=== PATIENT | male | born 1970 | race African-American/Black ===

== ENCOUNTER 2017-03-02 12:32 | Emergency (ER) | payer SELFPAY ==
[~2017-03-02] VITALS: Ht 180.3 cm; Wt 81.6 kg
[2017-03-02] MEDS ORDERED: IV NORMAL SALINE 1000ML BAG 1,000 ML IV ONE (13:15)
[2017-03-02] MEDS ORDERED: ONDANSETRON PF 4 MG/2 ML VIAL. IV ONE (13:15)
[2017-03-02] MEDS ORDERED: HYDROmorphone 2 MG/ML VIAL IV ONE (13:15)
[2017-03-02 14:14] LABS: BASO % 1 % (0-3); EOS % 0 % (0-3); HEMATOCRIT 44.8 % (39.0-53.0); HEMOGLOBIN 15.4 g/dL (13.0-17.5); LYMPH # 0.8 x10^3/uL (1.0-4.8); LYMPH % 15 % (24-48); MEAN CORPUSCULAR HEMOGLOBIN 29 pg (25-35); MEAN CORPUSCULAR HGB CONC 34 g/dL (31-37); MEAN CORPUSCULAR VOLUME 85 fL (79-100); MONO % 5 % (0-9); NEUT % 80 % (31-73); PLATELET COUNT 171 x10^3/uL (140-400); RED BLOOD COUNT 5.27 x10^6/uL (4.30-5.70); RED CELL DISTRIBUTION WIDTH 13.8 % (11.5-14.5); WHITE BLOOD COUNT 5.2 x10^3/uL (4.0-11.0)
[2017-03-02 14:16] LABS: BILIRUBIN,URINE NEGATIVE (NEG); GLUCOSE,URINE NEGATIVE (NEG); NITRITE,URINE NEGATIVE (NEG); PH,URINE 8.5; PROTEIN,URINE NEGATIVE (NEG-TRACE); UROBILINOGEN,URINE 0.2 mg/dL (0.2 mg/dL)
[2017-03-02 14:27] LABS: CALCIUM 9.7 mg/dL (8.5-10.1); GFR 97.8; POTASSIUM 3.7 mmol/L (3.5-5.1)
--- NOTE | 2017-03-02 14:28 | PHYS DOC ---
Past Medical History Past Medical History: Constipation, Hepatitis Past Surgical History: Other Additional Past Surgical Histo: HERNIA SX Alcohol Use: Sober Drug Use: Marijuana Adult General Chief Complaint Chief Complaint: ABDOMINAL PAIN HPI HPI Patient is a 47 year old male who presents with 2 day history of lower abdominal pain mild to moderate intensity intermittent intensity some nausea no vomiting some urinary frequency but no dysuria or penile discharge has complaints of some constipation but is now having some stools. Reports only surgical history hernia repair as an adolescent. Denies fever or lack of appetite. Does smoke marijuana frequently. Review of Systems Review of Systems Constitutional: Denies fever or chills [] Eyes: Denies change in visual acuity, redness, or eye pain [] HENT: Denies nasal congestion or sore throat [] Respiratory: Denies cough or shortness of breath [] Cardiovascular: No additional information not addressed in HPI [] GI: Denies,, vomiting, bloody stools or diarrhea [] : Denies dysuria or hematuria [] Musculoskeletal: Denies back pain or joint pain [] Integument: Denies rash or skin lesions [] Neurologic: Denies headache, focal weakness or sensory changes [] Endocrine: Denies polyuria or polydipsia [ All review systems are negative except as mentioned in history present illness] Current Medications Current Medications Current Medications Medications (Trade) Dose Ordered Sig/[facility] Start Time Stop Time Status Last Admin Dose Admin Hydromorphone HCl (Dilaudid) 0.5 mg 1X ONCE 03/02/17 13:15 03/02/17 13:16 DC 03/02/17 14:10 0.5 MG Info (Do NOT chart on this entry -- for MONITORING) 1 each PRN DAILY PRN 03/02/17 15:00 03/02/17 16:45 DC Iohexol (Omnipaque 300 Mg/ml) 75 ml 1X ONCE 03/02/17 15:00 03/02/17 15:01 DC 03/02/17 15:01 75 ML Ondansetron HCl (Zofran) 4 mg 1X ONCE 03/02/17 13:15 03/02/17 13:16 DC 03/02/17 14:08 4 MG Sodium Chloride 1,000 ml @ 1,000 mls/hr 1X ONCE 03/02/17 13:15 03/02/17 14:14 DC 03/02/17 14:10 1,000 MLS/HR Allergies Allergies Allergies Coded Allergies Type Severity Reaction Last Updated Verified Sulfa (Sulfonamide Antibiotics) Allergy Intermediate 04/20/15 No Physical Exam Physical Exam Constitutional: Well developed, well nourished, no acute distress, non-toxic appearance. [] HENT: Normocephalic, atraumatic, bilateral external ears normal, oropharynx moist, no oral exudates, nose normal. [] Eyes: PERRLA, EOMI, conjunctiva normal, no discharge. [] Neck: Normal range of motion, no tenderness, supple, no stridor. [] Cardiovascular:Heart rate regular rhythm, no murmur [] Lungs & Thorax: Bilateral breath sounds clear to auscultation [] Abdomen: Bowel sounds normal, soft, no tenderness, no masses, no pulsatile masses. [] Skin: Warm, dry, no erythema, no rash. [] Back: No tenderness, no CVA tenderness. [] Extremities: No tenderness, no cyanosis, no clubbing, ROM intact, no edema. [] Neurologic: Alert and oriented X 3, normal motor function, normal sensory function, no focal deficits noted. [] Psychologic: Affect normal, judgement normal, mood normal. [] Current Patient Data Vital Signs Vital Signs Date Time Temp Pulse Resp B/P (MAP) Pulse Ox O2 Delivery O2 Flow Rate FiO2 03/02/17 16:30 72 20 134/69 (90) 100 Room Air 03/02/17 13:00 97.5 97.5 Lab Values Laboratory Tests Test 03/02/17 14:00 White Blood Count 5.2 x10^3/uL (4.0-11.0) Red Blood Count 5.27 x10^6/uL (4.30-5.70) Hemoglobin 15.4 g/dL (13.0-17.5) Hematocrit 44.8 % (39.0-53.0) Mean Corpuscular Volume 85 fL (79-100) Mean Corpuscular Hemoglobin 29 pg (25-35) Mean Corpuscular Hemoglobin Concent 34 g/dL (31-37) Red Cell Distribution Width 13.8 % (11.5-14.5) Platelet Count 171 x10^3/uL (140-400) Neutrophils (%) (Auto) 80 % (31-73) H Lymphocytes (%) (Auto) 15 % (24-48) L Monocytes (%) (Auto) 5 % (0-9) Eosinophils (%) (Auto) 0 % (0-3) Basophils (%) (Auto) 1 % (0-3) Neutrophils # (Auto) 4.2 x10^3uL (1.8-7.7) Lymphocytes # (Auto) 0.8 x10^3/uL (1.0-4.8) L Monocytes # (Auto) 0.3 x10^3/uL (0.0-1.1) Eosinophils # (Auto) 0.0 x10^3/uL (0.0-0.7) Basophils # (Auto) 0.0 x10^3/uL (0.0-0.2) Urine Collection Type Unknown Urine Color Yellow Urine Clarity Clear Urine pH 8.5 Urine Specific [place] 1.010 Urine Protein Negative mg/dL (NEG-TRACE) Urine Glucose (UA) Negative mg/dL (NEG) Urine Ketones (Stick) 15 mg/dL (NEG) Urine Blood Negative (NEG) Urine Nitrite Negative (NEG) Urine Bilirubin Negative (NEG) Urine Urobilinogen Dipstick 0.2 mg/dL (0.2 mg/dL) Urine Leukocyte Esterase Negative (NEG) Urine RBC Rare /HPF (0-2) Urine WBC Occ /HPF (0-4) Urine Squamous Epithelial Cells Few /LPF Urine Bacteria 0 /HPF (0-FEW) Urine Mucus Slight /LPF Sodium Level 139 mmol/L (136-145) Potassium Level 3.7 mmol/L (3.5-5.1) Chloride Level 102 mmol/L (98-107) Carbon Dioxide Level 26 mmol/L (21-32) Anion Gap 11 (6-14) Blood Urea Nitrogen 8 mg/dL (8-26) Creatinine 1.0 mg/dL (0.7-1.3) Estimated GFR (Cockcroft-Gault) 97.8 BUN/Creatinine Ratio 8 (6-20) Glucose Level 108 mg/dL (70-99) H Calcium Level 9.7 mg/dL (8.5-10.1) Total Bilirubin 0.5 mg/dL (0.2-1.0) Aspartate Amino Transferase (AST) 28 U/L (15-37) Alanine Aminotransferase (ALT) 35 U/L (16-63) Alkaline Phosphatase 83 U/L (46-116) Total Protein 8.7 g/dL (6.4-8.2) H Albumin 4.3 g/dL (3.4-5.0) Albumin/Globulin Ratio 1.0 (1.0-1.7) Lipase 76 U/L (73-393) Laboratory Tests 03/02/17 14:00 Laboratory Tests 03/02/17 14:00 EKG EKG [] Radiology/Procedures Radiology/Procedures CT abdomen and pelvis [] per the radiology report patient has incidental finding of cholelithiasis bladder wall thickening and renal cysts bilaterally. Course & Med Decision Making Course & Med Decision Making Pertinent Labs and Imaging studies reviewed. (See chart for details) [Plan of care will consist of IV fluids symptomatic treatment checking labs and a CT abdomen and pelvis.] Exam at 1545 patient is improved and stable for dismissal. CT scan abdomen and pelvis showed multiple findings and I discussed those with the patient and his significant other including the diagnosis of gallstones cystitis and renal cysts that should probably followed up by a auto job estimator. Patient is report occasional blood in it when wiping on the toilet paper but there were no external hemorrhoids seen on the exam. Recommended stool softeners for constipation. Dragon Disclaimer Dragon Disclaimer This electronic medical record was generated, in whole or in part, using a voice recognition dictation system. Departure Departure Impression: Primary Impression: Cystitis Additional Impressions: Bilateral renal cysts Cholelithiasis Constipation Abdominal pain Disposition: 01 HOME, SELF-CARE Condition: IMPROVED Referrals: NO PCP (PCP) Patient Instructions: Cholelithiasis, [id number], Urinary Tract Infection, [id number] Additional Instructions: Please get follow-up with primary care physician and get a referral to a auto job estimator and discussed the bilateral renal cysts and bladder thickening as we discussed. Scripts Ondansetron (ZOFRAN ODT) 4 Mg Tab.rapdis 1 TAB SL Q8HRS for NAUSEA, #8 TAB Prov: PADMAJA ATKINSON MD 03/02/17 Oxycodone/Apap 5-325 (PERCOCET 5-325 MG TABLET) 1 Each Tablet 1 TAB PO PRN Q6HRS Y for PAIN, #10 TAB 0 Refills Prov: PADMAJA ATKINSON MD 03/02/17 Polyethylene Glycol 3350 (MIRALAX) 17 Gm Powd.pack 1 PACKET PO DAILY for CONSTIPATION, #30 PACKET 3 Refills Prov: PADMAJA ATKINSON MD 03/02/17 Ciprofloxacin Hcl (CIPRO) 500 Mg Tablet 1 TAB PO BID, #14 TAB Prov: PADMAJA ATKINSON MD 03/02/17 Problem Qualifiers PADMAJA ATKINSON MD Mar 02, 2017 14:28
[2017-03-02 14:31] LABS: BACTERIA,URINE 0 /HPF (0-FEW); RBC,URINE RARE /HPF (0-2); SQUAMOUS EPITHELIAL CELL,UR FEW /LPF; WBC,URINE OCC /HPF (0-4)
[2017-03-02 14:34] LABS: ALBUMIN 4.3 g/dL (3.4-5.0); TOTAL BILIRUBIN 0.5 mg/dL (0.2-1.0); TOTAL PROTEIN 8.7 g/dL (6.4-8.2)
[2017-03-02] MEDS ORDERED: IOHEXOL 300 MG/ML 75 ML VIAL IV ONE (15:00)
[2017-03-02] MEDS ORDERED: CONTRAST GIVEN MC PRN (15:00)
--- NOTE | 2017-03-02 15:31 | RAD ---
CT of the abdomen and pelvis without contrast, 03/02/2017: History: Abdominal pain Multidetector CT imaging was performed following an IV bolus injection of iodinated contrast material. No oral contrast material was administered for this study. No hepatic abnormality is detected. There are small foci of increased density along the posterior wall of the gallbladder compatible with gallstones. The gallbladder wall is not thickened and no pericholecystic edema is seen. The pancreas is unremarkable. The spleen is of normal size. Two cysts are present in the left kidney, the largest of which lies in the lower pole and measures 3 cm. There is a 1 cm cyst in the right kidney. The kidneys show no evidence of obstruction. The abdominal aorta is unremarkable. No abdominal or pelvic adenopathy is seen. There is mild diffuse thickening of the bladder whittaker. This may be accentuated by lack of bladder distention. The bowel loops are not dilated. A portion of the appendix is visualized and it shows no abnormality. No free fluid or free air is evident in the abdomen or pelvis. IMPRESSION: 1. Cholelithiasis. 2. Bilateral renal cysts. 3. Mild diffuse bladder wall thickening raising the possibility of cystitis. Clinical correlation is suggested. PQRS Compliance Statement: One or more of the following individualized dose reduction techniques were utilized for this examination: 1. Automated exposure control 2. Adjustment of the mA and/or kV according to patient size 3. Use of iterative reconstruction technique
[2017-03-02] MEDS ORDERED: POLY17PO29 PO (15:52)
[2017-03-02] MEDS ORDERED: OXYC-323 PO (15:52)
[2017-03-02] MEDS ORDERED: ONDA4TAB10 SL (15:52)
[2017-03-02] MEDS ORDERED: CIPR500T94 PO (15:52)
[2017-03-02 16:30] VITALS: BP 134/69
== END 2017-03-02 16:10 | disposition home or self-care (01) ==
LOC: ER 12:32
DX: N30.90 Cystitis, unspecified without hematuria (principal); N28.1 Cyst of kidney, acquired; K80.20 Calculus of gallbladder without cholecystitis without obstruction; K59.00 Constipation, unspecified; F12.10 Cannabis abuse, uncomplicated; Z86.19 Personal history of other infectious and parasitic diseases; Z88.2 Allergy status to sulfonamides
CPT/HCPCS: 36415; 74177; 80053; 81001; 83690; 85027; 96361; 96374; 96375; 99285; J1170; J2405; J7030; Q9967